=== PATIENT | female | born 1995 | race Caucasian/White ===

== ENCOUNTER 2017-10-31 09:11 | Emergency (ER) | payer BC ==
[~2017-10-31] VITALS: Ht 165.1 cm; Wt 66.5 kg
[2017-10-31 09:13] VITALS: TEMP 37; Ht 165.1 cm; Wt 66.5 kg
[2017-10-31] MEDS ORDERED: SODIUM CHLORIDE 0.9% 1000ML 1,000 ML IV STA (09:21)
[2017-10-31] MEDS ORDERED: ONDANSETRON INJ 2 MG/ML 2 ML VIAL IV STA (09:21)
[2017-10-31] MEDS ORDERED: MoRPHine SULFATE 4 MG/ML 1 ML CARP\\VIAL IV PRN (09:30)
[2017-10-31] MEDS ORDERED: OPTIRAY 320 IV PRN (09:30)
[2017-10-31] MEDS ORDERED: AMPICILLIN/SULBACTAM SOD INJ 3,000 MG in SODIUM CHLORIDE 0.9% 100ML 100 ML IV ONE (09:30)
--- NOTE | 2017-10-31 09:34 | EMERGENCY ROOM VISIT NOTE ---
History Report prepared by Tavia: Danelle Rico Under the Supervision of: Dr. Donald Talley D.O. First contact with patient: 09:18 Chief Complaint: OTHER COMPLAINT Stated Complaint: SEVERLY SWOLLEN SALIVERY GLAND History of Present Illness The patient is a 22 year old female who presents to the Emergency Room with complaints of worsening swelling to the right side of her neck beginning yesterday. The patient states her glands have become increasingly swollen and painful to touch. She reports she cant fully open her mouth. The patient has a history of an abscess tonsil. She denies any fever, nausea, vomiting, cough, dental pain, or difficulty breathing. The patient reports her PCP told her she had Sjgren's syndrome but that she needs blood work to confirm it. The patient' s last menstrual period was two weeks ago. Source of History: patient Onset: yesterday Position: neck Quality: other (swollen glands) Timing: worsening Associated Symptoms: No fevers, No cough, No SOB, No nausea, No vomiting Review of Systems See HPI for pertinent positives & negatives. A total of 10 systems reviewed and were otherwise negative. Past Medical & Surgical Medical Problems: (1) Tonsil, abscess Social History Smoking Status: Never Smoker Alcohol Use: occasionally Marital Status: single Housing Status: lives with roommate Occupation Status: [employer] student Current/Historical Medications Scheduled Amoxicillin & Pot Clavulanate (Augmentin 875-125 mg), 875 MG PO BID Control Pills ( Control Pills), 1 TAB PO DAILY Cyclosporine (Ophth) (Restasis), 1 DROP OP BID Ondasetron Odt (Zofran Odt), 4 MG SL Q6H Scheduled PRN Oxycodone Immediate Rel Tab (Roxicodone Ir), 1-2 TAB PO Q4H PRN for Severe Pain Allergies Coded Allergies: Codeine (Unverified Adverse Reaction, Intermediate, HIVES, 10/31/17) Physical Exam Vital Signs Date Time Temp Pulse Resp B/P (MAP) Pulse Ox O2 Delivery O2 Flow Rate FiO2 10/31/17 11:39 91 18 130/74 99 10/31/17 10:12 74 18 131/74 97 Room Air 10/31/17 09:13 37.0 87 18 146/116 97 Room Air Physical Exam GENERAL: Patient is awake, alert, and in no acute distress. Patient is uncomfortable appearing and somewhat anxious appearing. EYES: The conjunctivae are clear. The pupils are round and reactive. EARS, NOSE, MOUTH AND THROAT: The nose is without any evidence of any deformity. Mucous membranes are moist tongue is midline. No swelling or erythema at gum line. Significant right sided facial pain at parotid and right submandibular space. No trismus. NECK: The neck is nontender and supple. RESPIRATORY: Normal respiratory effort is noted there is no evidence of wheezing rhonchi or rales CARDIOVASCULAR: Regular rate and rhythm noted there no murmurs rubs or gallops normal S1 normal S2 GASTROINTESTINAL: The abdomen is soft. Bowel sounds are present in all quadrants. Abdomen is nontender MUSCULOSKELETAL/EXTREMITIES: There is no evidence of gross deformity full range of motion is noted in the hips and shoulders SKIN: There is no obvious evidence of any rash. There are no petechiae, pallor or cyanosis noted. NEUROLOGIC: Patient is awake alert and oriented x3 strength is symmetric patellar reflexes are 2+ bilaterally Medical Decision & Procedures ER Provider Diagnostic Interpretation: Radiology results as stated below per my review and radiologist interpretation: SOFT TISSUE NECK COMBO FINDINGS: There is asymmetric moderate enlargement with hyperemia and increased enhancement of the right parotid gland involving both the superficial and deep lobes. Mild surrounding inflammatory stranding is noted tracking along the right platysma musculature into the right lower neck. No focal abscess or sialolith identified. No drainable fluid collections. No suspicious solitary mass lesion identified. There is also mildly increased size and increased enhancement of the right some mandibular gland compared to the left, also demonstrating mild surrounding inflammatory stranding. Mildly prominent right level 2 lymph nodes are likely reactive. Thyroid is homogeneous. No peritonsillar abscess identified. The epiglottis and aryepiglottic folds are within normal limits. Orbits are unremarkable. Image intracranial structures demonstrate no acute abnormality. Lung apices are clear. Probable tracheocele measuring 11 mm is seen along the right posterior lateral margin of the trachea at the level of T2-T3. The bones appear intact. Mastoid air cells and middle ear cavities are clear. The paranasal sinuses are generally clear with exception of mild ethmoid sinus disease. There is reversal of the normal cervical lordosis. IMPRESSION: 1. Moderate enlargement with hyperemia and increased enhancement of the right parotid gland with mildly increased size and enhancement of the right submandibular gland suggests infectious or inflammatory sialoadenitis without evidence of obstructing sialolith. Likely reactive soft tissue swelling with subcutaneous edema involves the right facial tissues tracking along the right platysma musculature. 2. No abscess or drainable fluid collections identified. 3. 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 The above report was generated using voice recognition software. It may contain grammatical, syntax or spelling errors. Electronically signed by: Ang Farris M.D. Laboratory Results 10/31/17 09:34 Red Blood Count 4.64, Mean Corpuscular Volume 85.1, Mean Corpuscular Hemoglobin 31.3, Mean Corpuscular Hemoglobin Concent 36.7, Mean Platelet Volume 10.0, Neutrophils (%) (Auto) 49.7, Lymphocytes (%) (Auto) 32.4, Monocytes (%) (Auto) 16.0, Eosinophils (%) (Auto) 1.5, Basophils (%) (Auto) 0.4, Neutrophils # (Auto ) 1.37, Lymphocytes # (Auto) 0.89, Monocytes # (Auto) 0.44, Eosinophils # (Auto ) 0.04, Basophils # (Auto) 0.01 10/31/17 09:34 Test 10/31/17 09:34 White Blood Count 2.75 K/uL (4.8-10.8) Red Blood Count 4.64 M/uL (4.2-5.4) Hemoglobin 14.5 g/dL (12.0-16.0) Hematocrit 39.5 % (37-47) Mean Corpuscular Volume 85.1 fL (80-100) Mean Corpuscular Hemoglobin 31.3 pg (25-34) Mean Corpuscular Hemoglobin Concent 36.7 g/dl (32-36) Platelet Count 188 K/uL (130-400) Mean Platelet Volume 10.0 fL (7.4-10.4) Neutrophils (%) (Auto) 49.7 % Lymphocytes (%) (Auto) 32.4 % Monocytes (%) (Auto) 16.0 % Eosinophils (%) (Auto) 1.5 % Basophils (%) (Auto) 0.4 % Neutrophils # (Auto) 1.37 K/uL (1.4-6.5) Lymphocytes # (Auto) 0.89 K/uL (1.2-3.4) Monocytes # (Auto) 0.44 K/uL (0.11-0.59) Eosinophils # (Auto) 0.04 K/uL (0-0.5) Basophils # (Auto) 0.01 K/uL (0-0.2) RDW Standard Deviation 36.9 fL (36.4-46.3) RDW Coefficient of Variation 11.9 % (11.5-14.5) Immature Granulocyte % (Auto) 0.0 % Immature Granulocyte # (Auto) 0.00 K/uL (0.00-0.02) Erythrocyte Sedimentation Rate 4 mm/hr (0-21) Anion Gap 7.0 mmol/L (3-11) Est Creatinine Clear Calc Drug Dose 105.4 ml/min Estimated GFR () 130.0 Estimated GFR (Non- 112.1 BUN/Creatinine Ratio 10.9 (10-20) Calcium Level 8.8 mg/dl (8.5-10.1) Total Bilirubin 0.3 mg/dl (0.2-1) Direct Bilirubin < 0.1 mg/dl (0-0.2) Aspartate Amino Transf (AST/SGOT) 30 U/L (15-37) Alanine Aminotransferase (ALT/SGPT) 55 U/L (12-78) Alkaline Phosphatase 72 U/L (45-117) C-Reactive Protein < 0.29 mg/dl (0-0.29) Total Protein 7.7 gm/dl (6.4-8.2) Albumin 4.0 gm/dl (3.4-5.0) Lipase 142 U/L (73-393) Human Chorionic Gonadotropin, Qual NEG (NEG) Laboratory results per my review. Medications Administered Medications (Trade) Dose Ordered Sig/Gladis Route Start Time Stop Time Status Last Admin Dose Admin Sodium Chloride 1,000 ml @ 250 mls/hr Q4H STAT IV 10/31/17 09:21 10/31/17 12:10 DC 10/31/17 09:21 250 MLS/HR Ampicillin Sodium/ Sulbactam Sodium 3000 mg/Sodium Chloride 108 ml @ 200 mls/hr ONE ONCE IV 10/31/17 09:30 10/31/17 10:02 DC 10/31/17 10:12 200 MLS/HR Ondansetron HCl (Zofran Inj) 4 mg NOW STAT IV 10/31/17 09:21 10/31/17 09:23 DC 10/31/17 09:34 4 MG Morphine Sulfate (MoRPHine SULFATE INJ) 4 mg Q15M PRN IV 10/31/17 09:30 10/31/17 12:10 DC 10/31/17 09:34 4 MG ED Course 09: The patient was evaluated in room B10. A complete history and physical examination were performed. 0921: Ordered Zofran Inj 4 mg IV, NSS 1,000 ml @ 250 mls/hr IV. 0930: Ordered Morphine Sulfate 4 mg IV, Ampicillin Sodium/Sulbactam Sodium 3, 000 mg/Sodium Chloride 108 ml @ 200 mls/hr IV. 1026: On reassessment, the patient is resting comfortably. She is still complaining of some discomfort. 1102: I updated the patient on her test results. 1107: I discussed the patient's case with Dr. Ellison. He will follow up with the patient as an outpatient. 1126: I updated the patient on the treatment plan. 1131: Upon reevaluation, the patient is resting comfortably. I discussed the results and treatment plan with her. She verbalized agreement of the treatment plan. The patient was discharged home. Medical Decision Differential diagnosis: Etiologies such as viral syndrome, tonsillitis, streptococcal pharyngitis, mononucleosis, peritonsillar abscess, retropharyngeal abscess, otitis, pneumonia , influenza, as well as others were entertained. Nursing notes reviewed. The patient is a 22-year-old college female who presented to the emergency department for evaluation of right facial swelling. The patient's history and physical exam appear to be consistent with parotitis. She did not appear to have signs of parotid ductal stone on imaging. The patient was treated with IV fluids IV pain medicine and IV antibiotics. I discussed her laboratory and radiographic studies with her. I also discussed her case with the on-call ear nose and throat physician. The patient was instructed to follow-up with [facility] as well as the ear nose and throat physician as soon as possible. Otherwise she was encouraged to return to the emergency department immediately if symptoms change or worsen or the need arises. Medication Reconcilliation Current Medication List: was personally reviewed by me Blood Pressure Screening Patient's blood pressure: Elevated blood pressure Blood pressure disposition: Elevated BP felt to be situational Consults Time Called: 1105 Consulting Physician: Dr. Ellison Returned Call: 1107 I discussed the patient's case with Dr. Ellison. He will follow up with the patient as an outpatient. Impression Primary Impression: Parotitis Scribe Attestation The scribe's documentation has been prepared under my direction and personally reviewed by me in its entirety. I confirm that the note above accurately reflects all work, treatment, procedures, and medical decision making performed by me. Departure Information Dispostion Home / Self-Care Prescriptions Amoxicillin & Pot Clavulanate (Augmentin 875-125 mg) 1 Tab Tab 875 MG PO BID, #20 TAB Prov: Donald Talley, DO 10/31/17 Ondasetron Odt (ZOFRAN ODT) 4 Mg Tab 4 MG SL Q6H for Nausea, #15 TAB Prov: Donald Talley, DO 10/31/17 Oxycodone Immediate Rel Tab (ROXICODONE IR) 5 Mg Tab 1-2 TAB PO Q4H Y for Severe Pain, #24 TAB Prov: Donald Talley, DO 10/31/17 Referrals GENE URRUTIA PA-C (PCP) Forms HOME CARE DOCUMENTATION FORM, IMPORTANT VISIT INFORMATION, WORK / SCHOOL INSTRUCTIONS Patient Instructions ED Submandibular Gland Infec, My [facility] Additional Instructions Call the ear nose and throat physician to schedule a follow-up appointment. Follow-up with [facility] for reevaluation. Continue all medications as prescribed. Consider using an [id number] stool softener if you are going to take the stronger pain medication. Continue taking Motrin and Tylenol for pain. Return to the emergency department immediately if symptoms change worsen or the need arises.
[2017-10-31 10:03] LABS: BASO % 0.4 %; BASO ABS # 0.01 K/uL (0-0.2); EOS % 1.5 %; EOS ABS # 0.04 K/uL (0-0.5); HEMATOCRIT 39.5 % (37-47); HEMOGLOBIN 14.5 g/dL (12.0-16.0); LYMPH % 32.4 %; LYMPH ABS # 0.89 K/uL (1.2-3.4); MEAN CELL VOLUME 85.1 fL (80-100); MEAN CORPUSCULAR HEMOGLOBIN 31.3 pg (25-34); MEAN CORPUSCULAR HGB CONC 36.7 g/dl (32-36); MONO ABS # 0.44 K/uL (0.11-0.59); NEUT % 49.7 %; NEUT ABS # 1.37 K/uL (1.4-6.5); PLATELET COUNT 188 K/uL (130-400); RED CELL DISTRIBUTION WIDTH CV 11.9 % (11.5-14.5); RED CELL DISTRIBUTION WIDTH SD 36.9 fL (36.4-46.3); WHITE BLOOD COUNT 2.75 K/uL (4.8-10.8)
[2017-10-31] MEDS ORDERED: CYCL0.052 OP (10:07)
[2017-10-31] MEDS ORDERED: BCPILLS PO (10:07)
[2017-10-31 10:21] LABS: BLOOD UREA NITROGEN 8 mg/dl (7-18); CREATININE 0.76 mg/dl (0.60-1.20); GLUCOSE 90 mg/dl (70-99)
[2017-10-31 10:22] LABS: ALT/SGPT 55 U/L (12-78); CALCIUM 8.8 mg/dl (8.5-10.1); CARBON DIOXIDE 24 mmol/L (21-32); LIPASE 142 U/L (73-393); POTASSIUM 3.5 mmol/L (3.5-5.1); SODIUM 138 mmol/L (136-145)
[2017-10-31 10:24] LABS: ALKALINE PHOSPHATASE 72 U/L (45-117); AST/SGOT 30 U/L (15-37); TOTAL PROTEIN 7.7 gm/dl (6.4-8.2)
--- NOTE | 2017-10-31 10:57 | DIAGNOSTIC IMAGING REPORT ---
SOFT TISSUE NECK COMBO HISTORY: 22 years-old Female stone v abscess, right facial swelling acute right-sided facial swelling COMPARISON: None available TECHNIQUE: Multiple axial CT images of the soft tissues of the neck were obtained both with and without the use of 94 mL Optiray 320 IV contrast. A dose lowering technique was used consistent with the principals of ANSON. FINDINGS: There is asymmetric moderate enlargement with hyperemia and increased enhancement of the right parotid gland involving both the superficial and deep lobes. Mild surrounding inflammatory stranding is noted tracking along the right platysma musculature into the right lower neck. No focal abscess or sialolith identified. No drainable fluid collections. No suspicious solitary mass lesion identified. There is also mildly increased size and increased enhancement of the right some mandibular gland compared to the left, also demonstrating mild surrounding inflammatory stranding. Mildly prominent right level 2 lymph nodes are likely reactive. Thyroid is homogeneous. No peritonsillar abscess identified. The epiglottis and aryepiglottic folds are within normal limits. Orbits are unremarkable. Image intracranial structures demonstrate no acute abnormality. Lung apices are clear. Probable tracheocele measuring 11 mm is seen along the right posterior lateral margin of the trachea at the level of T2-T3. The bones appear intact. Mastoid air cells and middle ear cavities are clear. The paranasal sinuses are generally clear with exception of mild ethmoid sinus disease. There is reversal of the normal cervical lordosis. IMPRESSION: 1. Moderate enlargement with hyperemia and increased enhancement of the right parotid gland with mildly increased size and enhancement of the right submandibular gland suggests infectious or inflammatory sialoadenitis without evidence of obstructing sialolith. Likely reactive soft tissue swelling with subcutaneous edema involves the right facial tissues tracking along the right platysma musculature. 2. No abscess or drainable fluid collections identified. 3. 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 The above report was generated using voice recognition software. It may contain grammatical, syntax or spelling errors. Electronically signed by: Ang Farris M.D. 10/31/2017 10:55 AM Dictated Date/Time: 10/31/2017 10:47 AM
[2017-10-31] MEDS ORDERED: ONDA4TAB10 SL (11:11)
[2017-10-31] MEDS ORDERED: AMOX875T PO (11:11)
[2017-10-31] MEDS ORDERED: OXYC1TAB3 PO (11:11)
[2017-10-31 11:39] VITALS: BP 130/74; PULSE 91; O2SAT 99
== END 2017-10-31 11:40 | disposition home or self-care (01) ==
LOC: C.EDB 09:13
DX: K11.20 Sialoadenitis, unspecified (principal); Z79.3 Long term (current) use of hormonal contraceptives